=== PATIENT | male | born 1935 | race Caucasian/White ===

== ENCOUNTER 2017-06-19 16:10 | Inpatient (IN) | payer MEDICARE, OTHER ==
[2017-06-19] MEDS ORDERED: ALBUTEROL NEB SOL 2.5MG/3ML 1 VIAL SOL NEB PRN (16:45)
[2017-06-19] MEDS: ALBUTEROL/IPRATROPIUM 1 VIAL SOL INH SCH ×2 (17:34→21:59)
[2017-06-19 17:59] LABS: BASOPHILS % (AUTO) 1 % (0-3); EOSINOPHILS % (AUTO) 0 % (0-9); HEMATOCRIT 29 % (39-53); MEAN CORPUSCULAR HGB CONC 31.8 gm/dl (32.0-36.0); MONOCYTES % (AUTO) 9.4 % (0-12); NEUTROPHILS % (AUTO) 83.4 % (37-80)
[2017-06-19 18:14] LABS: ALBUMIN 3.2 gm/dl (3.4-5.0); CALCIUM 9.2 mg/dl (8.5-10.1); POTASSIUM 3.9 mMol/L (3.5-5.1)
[2017-06-19 18:15] LABS: MEAN CORPUSCULAR VOLUME 64 fL (80-100)
[2017-06-19 18:18] LABS: ANISOCYTOSIS SLIGHT AMT; OVALOCYTES PRESENT
[2017-06-19] MEDS: SODIUM CHLORIDE 0.9% FLUSH 10 ML SOL IV SCH (18:40)
[2017-06-19] MEDS: CEFTRIAXONE 1 GM (PREMIX) 1 GM/50 ML SOL IV SCH (19:57)
[2017-06-19] MEDS: AZITHROMYCIN 250 MG TAB PO SCH (20:06)
[2017-06-19] MEDS ORDERED: LISINOPRIL 5 MG TAB PO SCH (21:00)
[2017-06-19] MEDS ORDERED: SOLUMEDROL 125 MG/2 ML 125 MG/2 ML PDS IV SCH (21:00)
[2017-06-19] MEDS: SERTRALINE HYDROCHLORIDE 50 MG TAB PO SCH (21:52)
[2017-06-19] MEDS: ATORVASTATIN 10 MG TAB PO SCH (21:52)
[2017-06-19] MEDS: Non-Formulary Medication MISC (Budesonide/Formoterol 160/4.5 2 PUFF) INH SCH (21:52)
[2017-06-19] MEDS: ATENOLOL 25 MG TAB PO SCH (21:52)
[2017-06-20] MEDS: SODIUM CHLORIDE 0.9% FLUSH 10 ML SOL IV SCH ×5 (04:52→20:49)
[2017-06-20] MEDS ORDERED: OMEPRAZOLE 20 MG CAPSULE PO SCH (07:00)
[2017-06-20 07:26] LABS: BASOPHILS % (AUTO) 0 % (0-3); EOSINOPHILS % (AUTO) 0 % (0-9); HEMATOCRIT 29 % (39-53); MEAN CORPUSCULAR HGB CONC 32.3 gm/dl (32.0-36.0); MONOCYTES % (AUTO) 1.4 % (0-12); NEUTROPHILS % (AUTO) 93.5 % (37-80)
[2017-06-20 07:32] LABS: MEAN CORPUSCULAR VOLUME 64 fL (80-100)
[2017-06-20 07:34] LABS: CALCIUM 9.5 mg/dl (8.5-10.1); POTASSIUM 4.5 mMol/L (3.5-5.1)
[2017-06-20 07:40] LABS: APPEARANCE,URINE Clear; BILIRUBIN,URINE NEGATIVE (NEGATIVE); COLOR,URINE Yellow; GLUCOSE, URINE (UA) NEGATIVE (NEGATIVE); KETONES,URINE NEGATIVE (NEGATIVE); LEUKOCYTE ESTERASE ,URINE NEGATIVE (NEGATIVE); NITRATE,URINE NEGATIVE (NEGATIVE); OCCULT BLOOD,URINE NEGATIVE (NEG-TRACE); PH,URINE 5.5; UROBILINOGEN,URINE 0.2 (0.2-1.0 EU)
[2017-06-20 07:48] LABS: ANISOCYTOSIS MOD AMT; OVALOCYTES PRESENT; TARGET CELLS PRESENT
[2017-06-20 08:07] LABS: RBC,URINE NEGATIVE (0-3AV/HPF); WBC,URINE 0-1 (0-5AV/HPF)
[2017-06-20] MEDS ORDERED: GUAIFENESIN 200 MG/10 ML SOL PO PRN (08:27)
[2017-06-20] MEDS ORDERED: AMLODIPINE 5 MG TAB PO SCH (09:00)
[2017-06-20] MEDS: TAMSULOSIN HYDROCHLORIDE 0.4 MG CAP PO SCH (10:13)
[2017-06-20] MEDS: LORATADINE 10 MG TAB PO SCH (10:13)
[2017-06-20] MEDS: FUROSEMIDE 40 MG TAB PO SCH (10:14)
[2017-06-20] MEDS: CLOPIDOGREL 75 MG TAB PO SCH (10:14)
[2017-06-20] MEDS: PANTOPRAZOLE SODIUM 40 MG ECT PO SCH (10:14)
[2017-06-20] MEDS: AZITHROMYCIN 250 MG TAB PO SCH (10:15)
[2017-06-20] MEDS: MULTIVITAMIN2 1 EA TAB PO SCH (10:15)
[2017-06-20] MEDS: ALLOPURINOL 100 MG TAB PO SCH (10:16)
[2017-06-20] MEDS: ALBUTEROL/IPRATROPIUM 1 VIAL SOL INH SCH ×4 (10:21→20:46)
[2017-06-20] MEDS: ENOXAPARIN 40 MG SOL SC SCH (10:28)
[2017-06-20] MEDS: SOLUMEDROL 125 MG/2 ML 125 MG/2 ML PDS IV SCH ×4 (10:30→21:01)
[2017-06-20] MEDS: BUDESONIDE/FORMOTEROL 160/4.5 AER INH SCH ×2 (10:35→20:51)
[2017-06-20] MEDS: Non-Formulary Medication MISC (Budesonide/Formoterol 160/4.5 2 PUFF) INH SCH (15:49)
[2017-06-20] MEDS: CEFTRIAXONE 1 GM (PREMIX) 1 GM/50 ML SOL IV SCH (18:48)
[2017-06-20] MEDS: ATORVASTATIN 10 MG TAB PO SCH (20:48)
[2017-06-20] MEDS: AMLODIPINE 5 MG TAB PO SCH (20:48)
[2017-06-20] MEDS: ATENOLOL 25 MG TAB PO SCH (20:49)
[2017-06-20] MEDS: SERTRALINE HYDROCHLORIDE 50 MG TAB PO SCH (20:49)
[2017-06-21] MEDS: SODIUM CHLORIDE 0.9% FLUSH 10 ML SOL IV SCH ×3 (05:04→16:42)
[2017-06-21 07:52] LABS: BASOPHILS % (AUTO) 1 % (0-3); EOSINOPHILS % (AUTO) 0 % (0-9); HEMATOCRIT 31 % (39-53); MEAN CORPUSCULAR HGB CONC 32.8 gm/dl (32.0-36.0); MONOCYTES % (AUTO) 2.7 % (0-12); NEUTROPHILS % (AUTO) 92.1 % (37-80)
[2017-06-21 08:18] LABS: CALCIUM 9.8 mg/dl (8.5-10.1); POTASSIUM 4.4 mMol/L (3.5-5.1)
[2017-06-21 08:26] LABS: MEAN CORPUSCULAR VOLUME 64 fL (80-100)
[2017-06-21 08:27] LABS: ANISOCYTOSIS SLIGHT AMT
[2017-06-21 08:28] LABS: OVALOCYTES PRESENT
[2017-06-21 08:29] LABS: TARGET CELLS PRESENT; TEAR DROP CELLS PRESENT
[2017-06-21] MEDS: ENOXAPARIN 40 MG SOL SC SCH (08:54)
[2017-06-21] MEDS: ALBUTEROL/IPRATROPIUM 1 VIAL SOL INH SCH ×4 (08:55→20:33)
[2017-06-21] MEDS: LORATADINE 10 MG TAB PO SCH (08:56)
[2017-06-21] MEDS: TAMSULOSIN HYDROCHLORIDE 0.4 MG CAP PO SCH (08:56)
[2017-06-21] MEDS: FUROSEMIDE 40 MG TAB PO SCH (08:56)
[2017-06-21] MEDS: CLOPIDOGREL 75 MG TAB PO SCH (08:56)
[2017-06-21] MEDS: ALLOPURINOL 100 MG TAB PO SCH (08:57)
[2017-06-21] MEDS: AZITHROMYCIN 250 MG TAB PO SCH (08:57)
[2017-06-21] MEDS: MULTIVITAMIN2 1 EA TAB PO SCH (08:57)
[2017-06-21] MEDS: PANTOPRAZOLE SODIUM 40 MG ECT PO SCH (08:57)
[2017-06-21] MEDS: PREDNISONE 20 MG TAB PO SCH (09:39)
[2017-06-21] MEDS: BUDESONIDE/FORMOTEROL 160/4.5 AER INH SCH ×2 (09:40→20:30)
[2017-06-21] MEDS: CEFDINIR 300 MG CAP PO SCH ×2 (10:26→20:30)
[2017-06-21] MEDS: NOVOLOG FLEXPEN SC SCH ×3 (11:58→20:36)
[2017-06-21] MEDS: ATORVASTATIN 10 MG TAB PO SCH (20:30)
[2017-06-21] MEDS: AMLODIPINE 5 MG TAB PO SCH (20:31)
[2017-06-21 20:45] VITALS: RESP 16
[2017-06-21] MEDS: SERTRALINE HYDROCHLORIDE 50 MG TAB PO SCH (21:30)
[2017-06-21] MEDS: ATENOLOL 25 MG TAB PO SCH (21:30)
[2017-06-22] MEDS: SODIUM CHLORIDE 0.9% FLUSH 10 ML SOL IV SCH ×2 (07:05→09:07)
[2017-06-22 08:04] VITALS: BP 164/70; TEMP 97.5
[2017-06-22] MEDS: NOVOLOG FLEXPEN SC SCH (09:05)
[2017-06-22] MEDS: ALBUTEROL/IPRATROPIUM 1 VIAL SOL INH SCH (09:07)
[2017-06-22] MEDS: ENOXAPARIN 40 MG SOL SC SCH (09:10)
[2017-06-22] MEDS: ALLOPURINOL 100 MG TAB PO SCH (09:11)
[2017-06-22] MEDS: FUROSEMIDE 40 MG TAB PO SCH (09:12)
[2017-06-22] MEDS: MULTIVITAMIN2 1 EA TAB PO SCH (09:12)
[2017-06-22] MEDS: PREDNISONE 20 MG TAB PO SCH (09:12)
[2017-06-22] MEDS: CLOPIDOGREL 75 MG TAB PO SCH (09:12)
[2017-06-22] MEDS: PANTOPRAZOLE SODIUM 40 MG ECT PO SCH (09:13)
[2017-06-22] MEDS: LORATADINE 10 MG TAB PO SCH (09:13)
[2017-06-22] MEDS: TAMSULOSIN HYDROCHLORIDE 0.4 MG CAP PO SCH (09:13)
[2017-06-22] MEDS: CEFDINIR 300 MG CAP PO SCH (09:13)
[2017-06-22] MEDS: AZITHROMYCIN 250 MG TAB PO SCH (09:14)
[2017-06-22] MEDS: BUDESONIDE/FORMOTEROL 160/4.5 AER INH SCH (09:14)
[2017-06-22 09:18] VITALS: PULSE 60
[2017-06-22 10:13] VITALS: O2SAT 94
== END 2017-06-22 10:35 | disposition home or self-care (01) | DRG 190 ==
LOC: ACUTE CARE 16:35
PROVIDERS: ADMIT Family Medicine; ATTEND Family Medicine
DX: J44.1 Chronic obstructive pulmonary disease with (acute) exacerbation (principal); J18.1 Lobar pneumonia, unspecified organism; I73.9 Peripheral vascular disease, unspecified; J44.0 Chronic obstructive pulmonary disease with (acute) lower respiratory infection; I65.21 Occlusion and stenosis of right carotid artery; I25.10 Atherosclerotic heart disease of native coronary artery without angina pectoris; R73.9 Hyperglycemia, unspecified
CPT/HCPCS: 36415; 71010; 80048; 80053; 81001; 82962; 85025; 85378; 87040; 93012; 94150; 94640; J0696; J1650; J2930; J7603; J7620; J1815